=== PATIENT | female | born 1985 | race Caucasian/White ===

== ENCOUNTER 2022-01-12 19:47 | Inpatient (IN) ==
[2022-01-12] MEDS ORDERED: Penicillin G Potassium IV 5,000,000 UNITS in NS 0.9% 100 ml BAG 100 ML IVPB ONE ×2 (21:28→22:21)
[2022-01-12] MEDS ORDERED: Promethazine INJ(RESTRICTED) 25 MG/ML 1 ml VIAL IV PRN ×2 (21:28→22:21)
[2022-01-12] MEDS ORDERED: Nalbuphine 10 MG/ML 1 ML VIAL IV PRN ×2 (21:28→22:21)
[2022-01-12] MEDS ORDERED: Buffered Lidocaine 1% SYRIN 1 ml INTRADERM ONE ×2 (21:28→22:21)
[2022-01-12] MEDS ORDERED: Lactated Ringers 1000 ml BAG 1,000 ML IV ONE ×2 (21:28→22:21)
[2022-01-12] MEDS ORDERED: Lactated Ringers 1000 ml BAG 1,000 ML IV SCH ×3 (22:00→23:00)
[2022-01-12] MEDS ORDERED: Penicillin G Potassium IV 3,000,000 UNITS in NS 0.9% 100 ml BAG 100 ML IVPB SCH ×2 (22:00→23:00)
[2022-01-12 22:06] LABS: Hematocrit 34 % (35-47); Hemoglobin 11.1 g/dL (12.0-16.0); Mean Corpuscular HGB Conc 33 g/dL (31-36); Mean Corpuscular Hemoglobin 32 pg (27-31); Mean Corpuscular Volume 95 fL (80-97); Mean Platelet Volume 9.1 fL (7.4-10.4); Platelet Count 147 10^3/uL (150-450); Red Blood Count 3.53 10^6 /uL (3.70-4.87); Red Cell Distribution Width 13 % (10-15); White Blood Count 7.1 10^3/uL (3.5-10.8)
[2022-01-12 22:24] LABS: Urine Benzodiazepine Screen None Detected (None Detect); Urine Cannabinoids Screen None Detected (None Detect); Urine Opiates Screen None Detected (None Detect)
[2022-01-13] MEDS: Penicillin G Potassium IV 3,000,000 UNITS in NS 0.9% 100 ml BAG 100 ML IVPB SCH ×6 (03:21→21:32)
[2022-01-13] MEDS ORDERED: Oxytocin in LR 20,000 MILLI.UNIT/1,000 ML BAG IV SCH (07:45)
[2022-01-13] MEDS ORDERED: EPINEPHrine SULFITE FREE 1 MG/ML ONE (23:50)
[2022-01-13] MEDS ORDERED: OBEPIDURAL (200 ML) 200 ML EPIDURAL ONE (23:50)
[2022-01-13] MEDS ORDERED: Lidocaine 1% VIAL 10 MG/ML VIAL 30 ML ONE (23:50)
[2022-01-14] MEDS ORDERED: Lactated Ringers 1000 ml BAG 1,000 ML IV ONE (00:55)
[2022-01-14] MEDS ORDERED: Sodium Citrate/Citric Acid LIQ 15 ML UDC PO PRN (00:55)
[2022-01-14] MEDS ORDERED: Phenylephrine 40 mcg/mL 10mL (400mcg) SYRINGE IV PUSH PRN ×2 (00:55)
[2022-01-14] MEDS ORDERED: Lactated Ringers 1000 ml BAG 1,000 ML IV SCH ×2 (01:00→12:00)
[2022-01-14] MEDS ORDERED: OBEPIDURAL (200 ML) 200 ML EPIDURAL SCH (01:00)
[2022-01-14] MEDS: Penicillin G Potassium IV 3,000,000 UNITS in NS 0.9% 100 ml BAG 100 ML IVPB SCH ×6 (02:24→23:20)
[2022-01-14] MEDS ORDERED: Lidocaine 1% VIAL 10 MG/ML VIAL 30 ML ONE (11:34)
[2022-01-14] MEDS ORDERED: Methylergonovine 0.2 mg AMPULE 1 ml AMP ONE (11:35)
[2022-01-14] MEDS ORDERED: Glycerin ADULT 2.4 gm SUPP PR PRN (11:47)
[2022-01-14] MEDS ORDERED: Witch Hazel PAD JAR TOPICAL PRN (11:47)
[2022-01-14] MEDS ORDERED: Methylergonovine 0.2 mg AMPULE 1 ml AMP IM ONE (11:49)
[2022-01-14] MEDS ORDERED: Oxytocin in LR 20,000 MILLI.UNIT/1,000 ML BAG IV SCH (12:00)
[2022-01-14] MEDS: Dibucaine 1% OINT 28.35 GM TUBE PR PRN (20:20)
[2022-01-15 06:42] LABS: ABS Lymphocytes 1.7 10^3/ul (1.0-4.8); ABS Monocytes 0.5 10^3/ul (0-0.8); ABS Neutrophils 6.3 10^3/ul (1.5-7.7); Eosinophil % 0.5 %; Hematocrit 26 % (35-47); Hemoglobin 8.7 g/dL (12.0-16.0); Lymphocyte % 19.6 %; Mean Corpuscular HGB Conc 34 g/dL (31-36); Mean Corpuscular Hemoglobin 32 pg (27-31); Mean Corpuscular Volume 94 fL (80-97); Mean Platelet Volume 8.7 fL (7.4-10.4); Platelet Count 113 10^3/uL (150-450); Red Blood Count 2.76 10^6 /uL (3.70-4.87); Red Cell Distribution Width 14 % (10-15); White Blood Count 8.5 10^3/uL (3.5-10.8)
[2022-01-15] MEDS: Dibucaine 1% OINT 28.35 GM TUBE PR PRN (19:44)
[2022-01-16 13:05] VITALS: BP 120/62
== END 2022-01-16 14:49 | disposition home or self-care (01) | DRG 806 ==
LOC: MCHOBOUT 19:47 → MCHOB 21:10
PROVIDERS: ADMIT Obstetrics & Gynecology; ATTEND Obstetrics & Gynecology

== ENCOUNTER 2024-01-08 05:50 | Inpatient (IN) ==
[2024-01-08 08:19] LABS: Hematocrit 34.5 % (35-45); Hemoglobin 11.6 g/dL (11.5-14.3); Mean Corpuscular Hemoglobin 30.6 pg (27-33); Mean Corpuscular Hgb Conc 33.5 g/dL (31-36); Mean Corpuscular Volume 91.1 fL (80-97); Mean Platelet Volume 9.9 fL (7.5-11.2); Platelet Count 134 10^3/uL (150-450); Red Blood Count 3.79 10^6/uL (3.63-4.92); Red Cell Distribution Width 14.4 % (12-17); White Blood Count 11.4 10^3/uL (3.8-11.8)
[2024-01-08 08:49] LABS: Urine Benzodiazepine Screen None Detected (None Detect); Urine Cannabinoids Screen None Detected (None Detect); Urine Opiates Screen None Detected (None Detect)
[2024-01-08] MEDS ORDERED: Lidocaine 1% VIAL 10 MG/ML 30 ML VIAL INJ PRN (08:59)
[2024-01-08] MEDS: Lactated Ringers 1000 ml BAG 1,000 ML IV ONE (09:19)
[2024-01-08] MEDS: Penicillin G Potassium IV 5,000,000 UNITS in NS 0.9% 100 ml BAG 100 ML IVPB ONE (09:23)
[2024-01-08] MEDS: Penicillin G Potassium IV 3,000,000 UNITS in NS 0.9% 100 ml BAG 100 ML IVPB SCH (13:25)
[2024-01-08] MEDS: Oxytocin in LR 20,000 MILLI.UNIT/1,000 ML BAG IV SCH ×2 (16:17→22:01)
[2024-01-08] MEDS ORDERED: Glycerin ADULT 2.4 gm SUPP PR PRN (21:59)
[2024-01-08] MEDS ORDERED: Lactated Ringers 1000 ml BAG 1,000 ML IV SCH (22:00)
[2024-01-08] MEDS: Dibucaine 1% OINT 28.35 GM TUBE PR PRN (23:49)
[2024-01-08] MEDS: Witch Hazel PAD JAR TOPICAL PRN (23:49)
[2024-01-09] MEDS: Lactated Ringers 1000 ml BAG 1,000 ML IV SCH (01:58)
[2024-01-09] MEDS: Buffered Lidocaine 1% SYRIN 1 ml INTRADERM ONE (01:58)
[2024-01-09 07:52] LABS: ABS Lymphocytes 1.5 10^3/uL (1.0-4.8); ABS Monocytes 0.6 10^3/uL (0.0-0.9); ABS Neutrophils 9.3 10^3/uL (1.5-7.6); Eosinophil % 0.2 %; Hematocrit 31.8 % (35-45); Hemoglobin 10.7 g/dL (11.5-14.3); Lymphocyte % 13.3 %; Mean Corpuscular Hgb Conc 33.6 g/dL (31-36); Mean Corpuscular Volume 92.1 fL (80-97); Mean Platelet Volume 9.4 fL (7.5-11.2); Platelet Count 115 10^3/uL (150-450); Red Blood Count 3.46 10^6/uL (3.63-4.92); Red Cell Distribution Width 14.4 % (12-17); White Blood Count 11.4 10^3/uL (3.8-11.8)
[2024-01-10 07:59] VITALS: BP 129/69
[2024-01-10] MEDS: Polyethylene Glycol 3350 17 GM PACKET PO PRN (13:29)
[2024-01-10] MEDS: COVID VAC 24-25 (12+) (Moderna) Syringe 0.5 mL IM ONE (15:06)
== END 2024-01-10 18:10 | disposition home or self-care (01) | DRG 807 ==
LOC: MCHOBOUT 05:50 → MCHOB 07:07
PROVIDERS: ADMIT Obstetrics & Gynecology; ATTEND Obstetrics & Gynecology